=== PATIENT | female | born 1955 | race Caucasian/White ===

== ENCOUNTER 2023-08-22 16:05 | Emergency (ER) | payer BC ==
[~2023-08-22] VITALS: Ht 157.5 cm; Wt 60.8 kg
[~2023-08-22 16:05] MED LIST: DOCU-300 PO; HYDR-5122 PO; METF-346 PO; METR-520 PO
[2023-08-22 16:36] VITALS: BP 117/76; PULSE 85; RESP 14; TEMP 98.1; O2SAT 98
[2023-08-22 17:32] LABS: APPEARANCE,URINE CLEAR (CLEAR); BILIRUBIN,URINE NEGATIVE (NEGATIVE); BLOOD, URINE NEGATIVE (NEGATIVE); COLOR,URINE YELLOW (YELLOW); LEUKOCYTE ESTERASE ,URINE NEGATIVE (NEGATIVE); NITRITE, URINE NEGATIVE (NEGATIVE); PH,URINE 5.5 (5.0-9.0); PROTEIN,URINE NEGATIVE (NEGATIVE); UGLUCOSE 3+ (NEGATIVE); UROBILINOGEN,URINE 0.2 EU/dL (0.2 - 1)
[2023-08-22] MEDS ORDERED: KETOROLAC 60 MG/2 ML VIAL IM ONE (18:05)
[2023-08-22] MEDS ORDERED: IBUP-2213 PO (18:19)
[2023-08-22 18:43] VITALS: BP 117/76; PULSE 85; RESP 14; TEMP 98.1; O2SAT 98
== END 2023-08-22 18:43 | disposition home or self-care (01) ==
LOC: MED 16:05
DX: S20.211A Contusion of right front wall of thorax, initial encounter (principal); E11.9 Type 2 diabetes mellitus without complications; I10 Essential (primary) hypertension; Z86.69 Personal history of other diseases of the nervous system and sense organs; Z90.49 Acquired absence of other specified parts of digestive tract; Z90.710 Acquired absence of both cervix and uterus; Z98.890 Other specified postprocedural states; Z79.899 Other long term (current) drug therapy; Z79.1 Long term (current) use of non-steroidal anti-inflammatories (NSAID); X58.XXXA Exposure to other specified factors, initial encounter; Y92.89 Other specified places as the place of occurrence of the external cause; Y93.89 Activity, other specified; Y99.8 Other external cause status
CPT/HCPCS: 71101; 81003; 96372; 99284; J1885

== ENCOUNTER 2024-05-24 14:57 | Emergency (ER) | payer BC ==
[~2024-05-24] VITALS: Ht 157.5 cm; Wt 59.2 kg
[~2024-05-24 14:57] MED LIST changes: +IBUP-2213 PO
[2024-05-24 15:31] VITALS: BP 151/81; PULSE 80; RESP 18; TEMP 98.1; O2SAT 98
[2024-05-24] MEDS: oxyCODONE/APAP 5/325 MG 1 TAB TAB PO ONE (17:00)
[2024-05-24] MEDS ORDERED: ACET-5634 PO (18:10)
[2024-05-24] MEDS ORDERED: ACET-5636 PO (18:12)
[2024-05-24 18:20] VITALS: BP 151/81; PULSE 80; RESP 18; TEMP 98.1; O2SAT 98
== END 2024-05-24 18:20 | disposition home or self-care (01) ==
LOC: MED 14:57
DX: S52.615A Nondisplaced fracture of left ulna styloid process, initial encounter for closed fracture (principal); S52.611A Displaced fracture of right ulna styloid process, initial encounter for closed fracture; S52.571A Other intraarticular fracture of lower end of right radius, initial encounter for closed fracture; S09.90XA Unspecified injury of head, initial encounter; E11.9 Type 2 diabetes mellitus without complications; I10 Essential (primary) hypertension; E78.5 Hyperlipidemia, unspecified; Z79.899 Other long term (current) drug therapy; Z86.69 Personal history of other diseases of the nervous system and sense organs
CPT/HCPCS: 70450; 73110; 99284